=== PATIENT | female | born 1990 | race Hispanic/Latino ===

== ENCOUNTER 2019-05-13 19:47 | Observation (INO) | payer SELFPAY ==
[~2019-05-13] VITALS: Ht 165.1 cm; Wt 102.1 kg
[2019-05-13 23:35] LABS: BASOPHILS % 0.3 % (0.0-1.0); EOSINOPHILS # (AUTO) 0.2 (0.0-0.4); EOSINOPHILS % 1.7 % (0.0-6.0); HEMATOCRIT 33.3 % (34.2-44.1); HEMOGLOBIN 10.2 g/dL (12.0-16.0); LYMPHOCYTES # (AUTO) 2.7 (1.0-3.2); LYMPHOCYTES % 30.6 % (18.0-39.1); MEAN CORPUSCULAR HEMOGLOBIN 22.8 pg (28-32); MEAN CORPUSCULAR HGB CONC 30.6 g/dL (31-35); MEAN CORPUSCULAR VOLUME 74.5 fL (81-99); MONOCYTES # (AUTO) 0.4 (0.2-0.8); MONOCYTES % 4.6 % (4.4-11.3); NEUTROPHILS # (AUTO) 5.5 (2.1-6.9); NEUTROPHILS % 62.6 % (38.7-80.0); PLATELET COUNT 323 x10e3/uL (140-360); RED BLOOD COUNT 4.47 x10e6/uL (3.6-5.1); RED CELL DISTRIBUTION WIDTH 18.2 % (11.7-14.4)
[2019-05-13] MEDS: PIPER-TAZ 3.375 GM 50 ML IV SCH (23:40)
[2019-05-13] MEDS: SODIUM CHLORIDE 0.9% 1000ML 1,000 ML IV SCH (23:40)
[2019-05-13] MEDS: VANCOMYCIN 1GM/NS 250 ML 250 ML IV SCH (23:43)
--- OUTSIDE RECORDS SUMMARY | 2019-05-13 23:43 | XMS REPORT ---
Author Author [facility] Address Unknown Phone Unavailable Care Team Providers Care Lean Specialist Name Role Phone Unavailable Unavailable Problems This patient has no known problems. Allergies, Adverse Reactions, Alerts This patient has no known allergies or adverse reactions. Medications This patient has no known medications. Encounters Start Date/Time End Date/Time Encounter Type Admission Type Attending [facility] Care Facility Care Department Encounter ID 2018-05-23 13:00:05 2018-05-23 13:00:05 Emergency [facility] [id number] 2018-05-23 08:54:11 2018-05-23 08:54:11 Emergency [facility] [id number]
--- OUTSIDE RECORDS SUMMARY | 2019-05-13 23:43 | XMS REPORT | Clinical Summary ---
Author Author [facility] Organization [facility] Address Unknown Phone Unavailable Care Team Providers Care Bar Catcher Name Role Phone PCP Unavailable Allergies No Known Allergies Medications End Date Status Medication Sig Dispensed Refills Start Date Active traMADol (ULTRAM) 50 mg Take 1 tablet 30 tablet 0 tabletIndications: Viral by mouth 8 meningitis every 6 hours as needed for Pain. 05/30/2018 ondansetron (ZOFRAN) 4 mg Take 1 tablet 20 tablet 0 tabletIndications: Viral by mouth 8 meningitis every 8 hours as needed for up to 7 days for Nausea. Active Problems Problem Noted Date Acute intractable headache 05/23/2018 Nausea and vomiting 05/23/2018 Photophobia 05/23/2018 Encounters Care Team Description Date Type Specialty Julia Parada DO Acute intractable headache, unspecified headache type (Primary Dx); Nausea and vomiting, intractability of vomiting not specified, unspecified vomiting type; Photophobia; Viral meningitis 05/23/2018 Emergency Emergency Medicine after 05/12/2018 Social History Date Tobacco Use Types Packs/Day Years Used Never Assessed Sex Assigned at Date Recorded Not on file Industry Job Start Date Occupation Not on file Not on file Not on file Travel End Travel History Travel Start No recent travel history available. Last Filed Vital Signs Reading Time Taken Comments Vital Sign 99/50 05/23/2018 8:33 PM CDT Blood Pressure 69 05/23/2018 8:33 PM CDT Pulse 37.1 C (98.7 F) 05/23/2018 8:33 PM CDT Temperature 18 05/23/2018 8:33 PM CDT Respiratory Rate 98% 05/23/2018 8:33 PM CDT Oxygen Saturation - - Inhaled Oxygen Concentration - - Weight - - Height - - Body Mass Index Plan of Treatment Health Maintenance Due Date Last Done Comments Cervical Cancer Scrn (3 2011 Yrs) IMM Influenza Seasonal 08/12/2019 Oct to January (>/=19 yrs) Procedures Comments Procedure Name Priority Date/Time Associated Diagnosis DIFFERENTIAL, CSF Routine 05/23/2018 5:50 PM CDT FUNGUS CULTURE,CSF STAT 05/23/2018 5:50 PM CDT T PROTEIN, CSF STAT 05/23/2018 5:50 PM CDT GLUCOSE, CSF STAT 05/23/2018 5:50 PM CDT CELL COUNT, CSF STAT 05/23/2018 5:50 PM CDT CSF CULTURE AND GRAM STAT 05/23/2018 STAIN 5:[address] HEAD W/O CONTRAST STAT 05/23/2018 Acute intractable 1:49 PM CDT headache, unspecified headache type POCT URINE DIPSTICK - STAT 05/23/2018 10:09 AM CDT URINALYSIS STAT 05/23/2018 10:00 AM CDT VBG POC Routine 05/23/2018 9:29 AM CDT LUMBAR PUNCTURE Routine 05/23/2018 Acute intractable 9:26 AM CDT headache, unspecified headache type Nausea and vomiting, intractability of vomiting not specified, unspecified vomiting type BMP POC Routine 05/23/2018 9:23 AM CDT CBC/DIFF STAT 05/23/2018 9:07 AM CDT after 05/12/2018 Results * DIFFERENTIAL, CSF (05/23/2018 5:50 PM CDT) Neutrophil 34 (H) 0 - 6 % [facility] Lymphocyte 49 40 - 80 % [facility] Monocyte 15 15 - 45 % [facility] 4 Basophil 2 % [facility] 4 Specimen Performing Organization Address City/State/Zipcode Phone Number MISYS [facility] * T PROTEIN, CSF (05/23/2018 5:50 PM CDT) T Protein, CSF 63.6 (H) 15 - 45 mg/dL [facility] 2 Specimen Cerebrospinal Fluid Performing Organization Address [facility] Phone Number [facility]ATION 2 * GLUCOSE, CSF (05/23/2018 5:50 PM CDT) Glucose, CSF 59 50 - 80 mg/dL [facility] 2 Specimen Cerebrospinal Fluid Performing Organization Address [facility] Phone Number [facility] 2 * FUNGUS CULTURE,CSF (05/23/2018 5:50 PM CDT) Spec Cerebrospinal fluid [facility] OUTPATIENT Description DRAW 3 Order Comments Cerebrospinal fluid [facility] OUTPATIENT DRAW 3 Culture No fungus isolated after 28 BT MICROBIOLOGY days Report Status Final 06/20/2018 BT MICROBIOLOGY Specimen Cerebrospinal Fluid - Cerebrospinal Fluid Performing Organization Address [facility] Phone Number [facility] OUTPATIENT DRAW 3 BT MICROBIOLOGY * CELL COUNT, CSF (05/23/2018 5:50 PM CDT) Appearance Clear [facility] 4 Color Colorless [facility] 4 WBC 123 (H) 0 - 5 /uL [facility] 4 RBC 1,000 /uL [facility] 4 Specimen Cerebrospinal Fluid Performing Organization Address [facility] Phone Number [facility] 4 * CSF STAIN / CULTURE (05/23/2018 5:50 PM CDT) Spec Cerebrospinal fluid [facility] OUTPATIENT Description DRAW 3 Gram Stain 2+ WBC's seen [facility] No organisms seen MICROBIOLOGY Culture No growth 3 days BT MICROBIOLOGY Report Status Final 05/27/2018 BT MICROBIOLOGY Specimen Cerebrospinal Fluid - Cerebrospinal Fluid Performing Organization Address [facility] Phone Number [facility] OUTPATIENT DRAW 3 [facility] MICROBIOLOGY BT MICROBIOLOGY * CT HEAD W/O CONTRAST (05/23/2018 1:49 PM CDT) Specimen Impressions Performed At IMPRESSION: SMS No acute intracranial abnormality. Signed By: Sofía Niño MD, 05/23/2018 1:55 PM Narrative Performed At EXAM: CT BRAIN WITHOUT CONTRAST. SMS INDICATION: Headache, nausea and vomiting COMPARISON: None TECHNIQUE: Non contrast axial images of the brain were obtained. DISCUSSION:There is no intracranial hemorrhage, space-occupying mass, mass effect or midline shift. No acute infarction. Ventricles are normal in size. The calvarium is intact. Visualized paranasal sinuses and tympanomastoid cavities are clear. Procedure Note Interface, Rad/Mammog In - 05/23/2018 2:00 PM CDT EXAM: CT BRAIN WITHOUT CONTRAST. INDICATION: Headache, nausea and vomiting COMPARISON: None TECHNIQUE: Non contrast axial images of the brain were obtained. DISCUSSION: There is no intracranial hemorrhage, space-occupying mass, mass effect or midline shift. No acute infarction. Ventricles are normal in size. The calvarium is intact. Visualized paranasal sinuses and tympanomastoid cavities are clear. IMPRESSION IMPRESSION: No acute intracranial abnormality. Signed By: Sofía Niño MD, 05/23/2018 1:55 PM Performing Organization Address [facility] Phone Number SMS * POCT URINE DIPSTICK - (05/23/2018 10:09 AM CDT) pass Control negative * UA CHEMISTRIES (05/23/2018 10:00 AM CDT) Color Yellow [facility] Clarity Hazy [facility] Specific 1.018 1.001 - 1.035 [facility] 2 pH 7.0 5 - 8 [facility] 2 Protein Negative NEG [facility] 2 Glucose Negative NEG [facility] 2 Ketones Negative NEG [facility] 2 Bilirubin Negative NEG [facility] 2 Nitrate Negative NEG [facility] 2 Urobilinogen,Se <1.0 0.2 - 1.0 EU/dL [facility] mi-Qn MAIN-[facility] 2 Leukocyte Negative NEG [facility] 2 Occult Blood Negative NEG [facility] 2 Specimen Urine Performing Organization Address City/[facility] Phone Number [facility] * VBG POC (05/23/2018 9:29 AM CDT) pH, Sita POC 7.41 7.33 - 7.43 [facility] 1 pCO2, Sita POC 41.8 38.0 - 50.0 mm Hg [facility] 1 pO2, Sita POC 51 50 - 75 mm Hg [facility] 1 Base Excess, 2 mmol/L [facility] Sita POC [facility] 1 HCO3, Sita POC 26.5 (H) 22.0 - 26.0 mmol/L [facility] 1 % Sat, Sita POC 86 (H) 60 - 85 % [facility] 1 Lactic Acid, 1.16 0.4 - 2.0 mmol/L [facility] Sita POC [facility] 1 Sample Type Sita [facility] 1 TCO2, SITA POC 28 21 - 32 mmol/L [facility] 1 Specimen Performing Organization Address City/State/Zipcode Phone Number MISYS [facility] 1 * LUMBAR PUNCTURE (05/23/2018 9:26 AM CDT) Narrative Performed At Niki Irizarry NP 05/23/20186:04 PM Lumbar Puncture Date/Time: 05/23/2018 6:03 PM Performed by: JITENDRA BUSTAMANTE Authorized by: NIKI IRIZARRY Consent: Consent obtained:Verbal and written Consent given by:Patient Risks discussed:Bleeding, headache, infection, nerve damage, pain and repeat procedure Alternatives discussed:No treatment [place] protocol: Procedure explained and questions answered to patient or proxy's satisfaction: yes Relevant documents present and verified: yes Test results available and properly labeled: yes Imaging studies available: yes Required blood products, implants, devices, and special equipment available: yes Immediately prior to procedure a time out was called: yes Site/side marked: yes Pre-procedure details: Procedure purpose:Diagnostic Preparation: Patient was prepped and draped in usual sterile fashion Anesthesia (see MAR for exact dosages): Anesthesia method:Local infiltration Local anesthetic:Lidocaine 1% w/o epi Procedure details: Lumbar space:L4-L5 interspace Patient position:R lateral decubitus Needle gauge:20 Ultrasound guidance: yes Number of attempts:2 Opening pressure (cm H2O):25 Fluid appearance:Blood-tinged then clearing Tubes of fluid:4 Total volume (ml):10 Post-procedure: Puncture site:Direct pressure applied and adhesive bandage applied Patient tolerance of procedure:Tolerated well, no immediate complications * BMP POC (05/23/2018 9:23 AM CDT) CO2 POC 26Comment: Spec sent to Lab 21 - 32 mmol/L [facility] 1 Chloride POC 106 98 - 107 mmol/L [facility]IN-[facility] 1 Potassium POC 4.0 3.50 - 5.10 mmol/L [facility] 1 Sodium POC 142 136 - 145 mmol/L [facility] 1 Glucose POC 99 74 - 106 mg/dL [facility] 1 Urea Nitrogen 6 (L) 7 - 18 mg/dL [facility] 1 Creatinine POC 0.8 0.6 - 1.3 mg/dL [facility] MAIN-STATION 1 Calcium Ionized 1.13 (L) 1.15 - 1.29 mmol/L [facility] POC MAIN-STATION 1 Hemoglobin POC 11.9 (L) 12.0 - 16.0 g/dL [facility] MAIN-STATION 1 Hematocrit POC 35.0 (L) 37.0 - 47.0 % [facility] MAIN-STATION 1 GFR, Estimated >60 mL/min/1.73 m2 [facility] MAIN-STATION 1 GFR, Estim, >60 mL/min/1.73 m2 [facility] Afr-Am MAIN-STATION 1 Specimen Performing Organization Address City/State/Zipcode Phone Number MISYS [facility] MAINSTATION 1 * CBC/DIFF (05/23/2018 9:07 AM CDT) WBC 11.8 (H) 4.5 - 11.0 K/uL [facility] MAIN-STATION 2 RBC 4.66 4.20 - 5.40 M/uL [facility] 2 Hemoglobin 10.4 (L) 12.0 - 16.0 g/dL [facility] MA[facility]-STATION 2 Hematocrit 35.7 (L) 37.0 - 47.0 % [facility] MAIN-STATION 2 MCV 77 (L) 82 - 92 fL [facility] MAIN-ST[facility] 2 MCH 22.3 (L) 27.0 - 32.0 pg [facility] MAIN-STATION 2 MCHC 29.1 (L) 32.0 - 36.0 g/dL [facility] MAIN-STATION 2 RDW 48.7 (H) 36.4 - 46.3 fL [facility] MAIN-STATION 2 Platelets 315 150 - 400 K/uL [facility] MAIN-[facility] 2 Mean Platelet 11.7 9.4 - 12.4 fL [facility] Volume MAIN-STATION 2 Percent NRBC 0.0 [facility] MAIN-STATION 2 Absolute NRBC 0.00 [facility] 2 Neutrophils 85.3 (H) 34.0 - 70.0 % [facility] 2 Lymphs 9.9 (L) 20.0 - 50.0 % [facility] 2 Monocytes 3.8 (L) 5.0 - 12.0 % [facility] 2 Eos 0.3 (L) 0.7 - 5.0 % [facility] 2 Basos 0.3 0.1 - 1.2 % [facility] 2 Immature 0.4 0.0 - 0.5 [facility] Granulocytes [facility] 2 Neutrophils 10.08 (H) 1.56 - 6.13 K/uL [facility] (Absolute) [facility] 2 Lymphs 1.17 (L) 1.18 - 3.74 K/uL [facility] (Absolute) [facility] 2 Monocytes(Absol 0.45 (H) 0.24 - 0.36 K/uL [facility] emily) MAIN-STATION 2 Eos (Absolute) 0.03 (L) 0.04 - 0.36 K/uL [facility] 2 Baso (Absolute) 0.03 0.01 - 0.08 K/uL [facility] 2 Immature Grans 0.05 (H) 0.00 - 0.03 K/uL [facility] (Abs) MAIN-STATION 2 Specimen Blood Performing Organization Address City/State/Zipcode Phone Number MISYS [facility] MAIN-STATION 2 after 05/12/2018
[2019-05-14] MEDS ORDERED: DIPHENHYDRAMINE HCL INJ 50 MG/ML VIAL IV PRN
[2019-05-14] MEDS ORDERED: KETOROLAC TROMETHAMINE 60 MG/2 ML VIAL IV ONE
[2019-05-14] MEDS ORDERED: ZOLPIDEM TARTRATE 5 MG TAB PO PRN
[2019-05-14 00:02] LABS: ALANINE AMINOTRANSFERASE 30 IU/L (0-55); ALBUMIN 3.6 g/dL (3.5-5.0); ALBUMIN/GLOBULIN RATIO 0.9 (0.8-2.0); ALKALINE PHOSPHATASE 78 IU/L (40-150); ANION GAP 13.8 mmol/L (8-16); BLOOD UREA NITROGEN 7 mg/dL (7-26); BUN/CREATININE RATIO 8 (6-25); CARBON DIOXIDE 24 mmol/L (22-29); CHLORIDE 106 mmol/L (98-107); CREATININE, SERUM 0.84 mg/dL (0.57-1.11); EST GLOMERULAR FILTRATION RATE > 60 ML/MIN (60-); GLUCOSE 104 mg/dL (74-118); POTASSIUM 3.8 mmol/L (3.5-5.1); SODIUM 140 mmol/L (136-145)
[2019-05-14] MEDS ORDERED: KETOROLAC TROMETHAMINE 30 MG/ML VIAL ONE (00:11)
--- NOTE | 2019-05-14 06:27 | History and Physical ---
REASON FOR ADMISSION: Perirectal abscess. HISTORY OF PRESENT ILLNESS: The patient is a 28-year-old lady who presented with a rectal pain where she has no sign of perirectal abscess, so she has been admitted for further evaluation and treatment. PAST MEDICAL HISTORY: Unremarkable. MEDICATIONS: None. ALLERGIES: NONE. FAMILY HISTORY: Unremarkable. SOCIAL HISTORY: Nonsmoker. Nondrinker. PHYSICAL EXAMINATION: VITAL SIGNS: Temperature 98.6, blood pressure 136/74, pulse 74, sats 100% on room air. GENERAL: She is no apparent distress. CARDIOVASCULAR: Regular rate and rhythm. LUNGS: Clear to auscultation bilaterally. ABDOMEN: Good bowel sounds. Soft, nontender. EXTREMITIES: No clubbing or cyanosis. NEUROLOGIC: Nonfocal. RECTAL: Shows an abscess in the perirectal region. ASSESSMENT AND PLAN: 1. Perirectal abscess. We will continue IV antibiotics and consult surgery. 2. Anemia. We will continue to monitor. 3. Obesity. Encourage the patient to diet and exercise more. Please see hospital chart for full details. MD ALONZO Thakur/JACKIE /[id number]
[2019-05-14] MEDS: PIPER-TAZ 3.375 GM 50 ML IV SCH ×3 (07:02→18:00)
[2019-05-14] MEDS: HYDROCODONE/APAP 7.5MG-325MG 1 EA TAB PO PRN ×2 (07:56→19:00)
--- NOTE | 2019-05-14 08:09 | NUR ---
DR. MORGAN AT BEDSIDE EVALUATING PATIENT
[2019-05-14] MEDS: FAMOTIDINE 20 MG/2 ML VIAL IV SCH ×2 (09:03→17:00)
--- NOTE | 2019-05-14 10:27 | Diagnostic Imaging Report ---
PROCEDURE:CT PELVIS WITH CONTRAST COMPARISON:None. INDICATIONS:PERIRECTAL ABSCESS TECHNIQUE:Helical axial CT images of the pelvis were obtained after the intravenous administration of 100 cc Isovue 370. Coronal and sagittal reformatted images were available for review. FINDINGS: PELVIC NODES:No inguinal, pelvic sidewall, or lower retroperitoneal lymphadenopathy. PELVIC ORGANS:Urinary bladder is unremarkable. Uterus is anteflexed and appears normal. Normal premenopausal ovaries without adnexal mass. Peritoneum/retroperitoneum: No ascites or pneumoperitoneum GI tract: Visualized large bowel shows no distention or wall thickening. No perirectal fluid collection per clinical query. Vessels: Iliac arterial systems are patent, without aneurysmal dilatation. BONES:No osseous destructive lesion or focal soft tissue abnormality. OTHER:Soft tissues unremarkable. CONCLUSION: No acute pelvic CT abnormalities. No perirectal abscess per clinical query. Dictated by: Adrian Grace M.D. on 05/14/2019 at 10:31 Electronically approved by: Adrian Grace M.D. on 05/14/2019 at 10:31
--- NOTE | 2019-05-14 10:39 | NUR ---
PATIENT REQUESTING TO GO OUTSIDE AND SMOKE. REMINDER SHE SHE SIGNED THE NO SMOKING FACILITY PAPEWORK. WE CAN ASK HER DOCTOR FOR A PATCH. WANTS TO KNOW HER CT RESULTS AND REQUESTING TO BE ABLE TO HAVE SOMETHING TO EAT. RYNE CALL DR. MORGAN WITH REPORT.
--- NOTE | 2019-05-14 10:57 | NUR ---
RECEIVED REPORT FROM DR. FISHER NURSE. OKAY FOR PATIENT TO EAT AND DRINK
[2019-05-14] MEDS: VANCOMYCIN 1GM/NS 250 ML 250 ML IV SCH ×2 (11:37→23:31)
[2019-05-14] MEDS ORDERED: SODIUM CHLORIDE 0.9% 50ML 50 ML ONE (12:31)
[2019-05-14] MEDS ORDERED: IOPAMIDOL 370 MG/ML 200 ML INFUS..BTL INJ ONE (12:32)
--- NOTE | 2019-05-14 14:47 | NUR ---
report received from ER, patient to arrive on unit via hospital bed with significant other at bedside.
[2019-05-14 15:05] VITALS: BP 106/67
[2019-05-14 16:04] VITALS: BP 106/67
[2019-05-14 16:07] VITALS: BP 106/67
[2019-05-14] MEDS: SODIUM CHLORIDE 0.9% 1000ML 1,000 ML IV SCH ×2 (17:03→23:17)
[2019-05-14 19:30] VITALS: BP 120/94
[2019-05-14] MEDS: MORPHINE SULFATE INJ 4 MG/ML INJ 1ML IV PRN (21:02)
[2019-05-14] MEDS: ONDANSETRON HCL INJ 2MG/ML 2ML 2 MG/ML VIAL IV PRN (21:03)
--- NOTE | 2019-05-14 21:03 | NUR ---
PATIENT C/O PAIN TO THE RECTAL ABSCESS, MEDICATED WITH MORPHINE AND ZOFRAN ORDERED. SHE HAD USED THE RESTROOM PRIOR TO ADMINISTERING THE MEDICATIONS.
[2019-05-14 23:20] VITALS: BP 104/85
--- NOTE | 2019-05-14 23:26 | Consultation ---
DATE OF CONSULTATION: 05/14/2019 CHIEF COMPLAINT: Anal pain. HISTORY OF PRESENT ILLNESS: This patient is a 28-year-old female with 2-day history of perianal pain with no fever or chills or diarrhea. The patient has no previous history of pain, rectal or anal abscess. PAST SURGICAL HISTORY: Unremarkable. No previous surgery. ALLERGIES: NO DRUGS ALLERGIES. SOCIAL HISTORY: No history of smoking or alcohol abuse. REVIEW OF SYSTEMS: As in HPI. PHYSICAL EXAMINATION: VITAL SIGNS: Stable. Afebrile. GENERAL: She is awake, alert, in moderate discomfort. HEENT: Sclerae are nonicteric. NECK: Supple. LUNGS: Clear. HEART: Regular rate and rhythm. ABDOMEN: Soft and nontender. RECTAL: Anal exam reveals one area of induration and mild erythema suggestive of evolving abscess formation versus hemorrhoid thrombosis. LABORATORY DATA: Blood tests show creatinine of 0.8. White cell count of 8.7. CT of the pelvis showed no evidence of perirectal abscess formation. ASSESSMENT: Perianal pain, which could represent evolving perianal abscess formation versus hemorrhoidal inflammation. PLAN: Continue IV hydration and antibiotics. We will follow patient's closely. MD PORFIRIO Ospina/JACKIE /[id number]
--- NOTE | 2019-05-14 23:40 | NUR ---
PATIENT RESTING IN BED, NO RESPIRATORY DISTRESS OBSERVED AND SHE DENIES PAIN. NO DRAINAGE NOTED FROM THE RECTAL ABSCESS STATED BY THE PATIENT, SHE'S INSTRUCTED TO CALL FOR ASSISTANCE NEEDED.
[2019-05-15] VITALS (8 sets, daily range): BP systolic 90–122; BP diastolic 57–81
[2019-05-15] MEDS: PIPER-TAZ 3.375 GM 50 ML IV SCH ×4 (01:15→17:00)
[2019-05-15] MEDS: HYDROCODONE/APAP 7.5MG-325MG 1 EA TAB PO PRN ×2 (03:45→21:14)
--- NOTE | 2019-05-15 03:45 | NUR ---
PATIENT C/O MILD RECTAL PAIN, MEDICATED WITH NORCO 1TAB ORDERED. CALL LIGHT WITHIN EASY REACH, SHE'S INSTRUCTED TO CALL FOR ASSISTANCE NEEDED.
[2019-05-15] MEDS: FAMOTIDINE 20 MG/2 ML VIAL IV SCH ×2 (08:45→16:57)
--- NOTE | 2019-05-15 11:54 | NUR ---
RECEIVED REPORT ON PATIENT. PATIENT IS IN STABLE CONDITION WITH NO S/S OF RESPIRATORY DISTRESS. NO PAIN VOICED. CALL LIGHT IS WITHIN REACH, PATIENT INSTRUCTED TO CALL FOR ASSISTANCE NEEDED.
[2019-05-15] MEDS: SODIUM CHLORIDE 0.9% 1000ML 1,000 ML IV SCH ×3 (13:03→23:17)
[2019-05-15] MEDS: ONDANSETRON HCL INJ 2MG/ML 2ML 2 MG/ML VIAL IV PRN ×3 (13:13→23:57)
[2019-05-15] MEDS: MORPHINE SULFATE INJ 4 MG/ML INJ 1ML IV PRN ×3 (13:13→23:59)
[2019-05-15] MEDS: VANCOMYCIN 1GM/NS 250 ML 250 ML IV SCH ×2 (13:42→23:23)
[2019-05-15] MEDS ORDERED: LIDOCAINE HCL 2% LOCAL 20 ML VIAL INJ ONE (14:30)
--- NOTE | 2019-05-15 14:56 | NUR ---
I/D PERFORMED BY DR. MORGAN AT BEDSIDE- 4x4 GAUZE APPLIED AND MESH PANTIES APPLIED.
--- NOTE | 2019-05-15 15:09 | Operative Report ---
DATE OF PROCEDURE: 05/15/2019 SURGEON: Adrian Sharp MD PREOPERATIVE DIAGNOSIS: Anal abscess. POSTOPERATIVE DIAGNOSIS: Anal abscess. OPERATIVE PROCEDURE: Incision and drainage of anal abscess. ANESTHESIA: Local. INDICATION: A 28-year-old female with 3-day history of perianal pain. She consented for I and D of anal abscess under local anesthesia and attendant risks discussed. DESCRIPTION OF PROCEDURE: The patient placed on the hospital bed in a right lateral decubitus position with the left side up. At approximately 10 o'clock position, there was an anal abscess which was small and local anesthesia of 2% lidocaine was injected into the skin and submucosal tissue. After local anesthesia had taken effect, we made radial incisions directly over the roof of the abscess draining a small amount of pus. There was minimal amount of bleeding, approximately 1 mL. Pressure dressing applied with 4 x 4 gauze. The patient tolerated procedure well. Adrian Sharp MD DNL/MODL /[id number]
--- NOTE | 2019-05-15 18:45 | NUR ---
PATIENT IS IN STABLE CONDITION WITH NO S/S OF RESPIRATORY DISTRESS. PAIN MEDICATION RECENTLY ADMINISTERED TO PATIENT. IV FLUIDS INFUSING. FAMILY MEMBERS PRESENT IN ROOM. CALL LIGHT IS WITHIN REACH, PATIENT INSTRUCTED TO CALL FOR ASSISTANCE NEEDED. REPORT GIVEN TO ONCOMING NURSE.
[2019-05-15] MEDS: ACETAMINOPHEN 325 MG TAB PO PRN (21:04)
[2019-05-16 00:14] VITALS: BP 115/70
[2019-05-16] MEDS: PIPER-TAZ 3.375 GM 50 ML IV SCH ×2 (00:45→06:23)
[2019-05-16 04:00] VITALS: BP 105/69
[2019-05-16] MEDS: HYDROCODONE/APAP 7.5MG-325MG 1 EA TAB PO PRN ×2 (04:35→08:35)
--- NOTE | 2019-05-16 06:59 | NUR ---
REPORT GIVEN TO ONCOMING NURSE,WALKING ROUNDS DONE.PT RESTING IN BED WITH NO S/S OF DISTRESS.
--- NOTE | 2019-05-16 07:00 | NUR ---
received am report from RN, morning rounds completed. pt is sleeping in bed, significant other is with the pt. no s/s of distress noted from pt.
[2019-05-16] MEDS: FAMOTIDINE 20 MG/2 ML VIAL IV SCH (08:35)
[2019-05-16 08:37] VITALS: BP 110/69
[2019-05-16 09:27] VITALS: BP 110/69
[2019-05-16] MEDS ORDERED: ONDANSETRON HCL 4 MG ORAL DISINTEGRATING TAB PO PRN (11:30)
[2019-05-16] MEDS: ACETAMINOPHEN 325 MG TAB PO PRN (12:08)
[2019-05-16] MEDS ORDERED: FAMOTIDINE 20 MG TAB PO SCH (16:30)
--- NOTE | 2019-05-28 21:18 | Discharge Summary ---
DISCHARGE DIAGNOSIS: Perirectal abscess. HISTORY OF PRESENT ILLNESS: The patient is a 28-year-old lady, presented with perirectal pain, where she was noticed to have a very small perirectal abscess. She was brought in, placed on pain medicines, IV antibiotics. She was seen by Dr. Sharp of Surgery, who then performed an I and D that showed improvement of her pain. At the time of discharge, she was able to take p.o. pain medicines well. She is ambulating well and eating well, so she was then discharged home with p.o. pain medication as well as p.o. antibiotics and follow up in 2 weeks with her primary care physician as well as Dr. Sharp of Surgery. Please see all chart for full details. MD ALONZO Thakur/JACKIE /[id number]
== END 2019-05-16 12:31 | disposition home or self-care (01) ==
LOC: ER 19:47 → ERHOLD 23:40 → IMCU 05-14 14:56 → MED/SURG 05-15 20:24
PROVIDERS: ADMIT Internal Medicine; ATTEND Internal Medicine
DX: K61.0 Anal abscess (principal); K62.89 Other specified diseases of anus and rectum; K64.5 Perianal venous thrombosis; D64.9 Anemia, unspecified; E66.9 Obesity, unspecified; Z68.37 Body mass index [BMI] 37.0-37.9, adult
CPT/HCPCS: 36415 ×2; 46045; 72193; 80053; 80202; 84702; 85025; 96365; 96367; 96376; 99284; G0378 ×4; J1885; J2001; J2270 ×2; J2405 ×2; J2543 ×4; J3370 ×3; J7030 ×3; Q9967

== ENCOUNTER 2020-01-03 03:05 | Emergency (ER) | payer SELFPAY ==
[~2020-01-03] VITALS: Ht 165.1 cm; Wt 102.1 kg
--- OUTSIDE RECORDS SUMMARY | 2020-01-03 03:07 | XMS REPORT | Summary of Care ---
Author Author [facility] - Health Organization [facility] - Health Address Unknown Phone Unavailable Care Team Providers Care Cage Tender Name Role Phone Pcp, Patient Does Not Have A PCP Pcp, Patient Does Not Have A PCP Reason for Referral * Radiology Services (STAT) Referred By Contact Referred To Contact Status Reason Specialty Diagnoses / Procedures Johny Whitfield FNP [address] [facility] [address] [place] [phone] New Request Diagnostic Diagnoses Radiology Sinus congestion Sinus headache P rocedures XR CHEST 2 VW * Radiology Services (STAT) Referred By Contact Referred To Contact Status Reason Specialty Diagnoses / Procedures Johny Whitfield FNP [address] [facility] [address] [place] [phone] New Request Diagnostic Diagnoses Radiology Sinus congestion Sinus headache P rocedures XR CHEST 2 VW Reason for Visit * Reason Comments Headache Congestion Hearing Problem * Auth/Cert Referred By Contact Referred To Contact Status Reason Specialty Diagnoses / Procedures [facility] [address] [place] [phone] Emergency Medicine Encounter Details Care Team Description Date Type Department Johny Whitfield FNP [address] [facility] [address] [place] [phone] Sinus congestion (Primary Dx); Sinus headache; Bronchitis 07/09/2019 Emergency [facility]-Emergency Department - [address] [place] [address] 07/10/2019 [place] [phone] Allergies No Known Allergiesdocumented as of this encounter (statuses as of 07/10/2019) Medications End Date Status Medication Sig Dispensed Refills Start Date Active famotidine (PEPCID) 20 mg Take 1 tablet 20 tablet 0 tablet by mouth 2 6 (two) times daily. Active BENTYL 20 mg tablet Take 1 tablet 20 tablet 0 by mouth 4 6 (four) times daily. Active HYDROcodone-acetaminophen Take 1 tablet 30 tablet 0 5-325 mg tablet by mouth 8 every 4 (four) hours as needed for Pain (scale 7-10). Active azithromycin 250 mg Take 1 tablet 1 Package 0 tabletIndications: Sinus by mouth 9 congestion, Sinus daily. Take headache, Bronchitis 500 mg day 1, then 250 mg days 2 to 5. Active methylPREDNISolone Take by 21 Each 0 (MEDROL, CHERELLE,) 4 mg mouth 9 tabletsIndications: Sinus SEE-INSTRUCTI congestion, Sinus ONS. follow headache, Bronchitis package directions Active benzonatate 100 mg Take 1 14 capsule 0 capsuleIndications: Sinus capsule by 9 congestion, Sinus mouth 3 headache, Bronchitis (three) times daily as needed for Cough. Active albuterol 90 Inhale 2 8.5 g 0 mcg/actuation Puffs every 4 9 inhalerIndications: (four) hours Bronchitis as needed for Wheezing or Shortness of Breath. documented as of this encounter (statuses as of 07/10/2019) Active Problems Problem Noted Date Obesity (BMI 30-39.9) 01/21/2018 Appendicitis 01/21/2018 Abdominal pain 01/20/2018 documented as of this encounter (statuses as of 07/10/2019) Immunizations Name Administration Dates Next Due Td 10/20/2016 documented as of this encounter Social History Date Tobacco Use Types Packs/Day Years Used Current Every Day Smoker Cigarettes 0.5 10 Smokeless Tobacco: Never Used Drinks/Week oz/Week Comments Alcohol Use 2-3 beers per day Yes Sex Assigned at Date Recorded Not on file Industry Job Start Date Occupation Not on file Not on file Not on file Travel End Travel History Travel Start No recent travel history available. documented as of this encounter Last Filed Vital Signs Reading Time Taken Comments Vital Sign 108/69 07/10/2019 12:42 AM CDT Blood Pressure 88 07/10/2019 12:42 AM CDT Pulse 36.9 C (98.4 F) 07/09/2019 10:25 PM CDT Temperature 17 07/10/2019 12:42 AM CDT Respiratory Rate 99% 07/10/2019 12:42 AM CDT Oxygen Saturation - - Inhaled Oxygen Concentration 105.2 kg (232 lb) 07/09/2019 10:25 PM CDT Weight - - Height 36.34 02/12/2018 11:18 AM CDT Body Mass Index documented in this encounter Discharge Instructions * Attachments The following attachments cannot be sent through Care Everywhere.* Bronchitis with Wheezing (Adult) ([place]) documented in this encounter Plan of Treatment Health Maintenance Due Date Last Done Comments VARICELLA VACCINES (1 of 2003 2 - 13+ 2-dose series) PAP SMEAR 2011 DTaP,Tdap,and Td Vaccines 10/21/2016 10/20/2016 (1 - Tdap) INFLUENZA VACCINE 07/13/2019 (Retired version) PNEUMOCOCCAL 0-64 YEARS Aged Out No longer eligible based COMBINED SERIES on patient's age to complete this topic documented as of this encounter Procedures Comments Procedure Name Priority Date/Time Associated Diagnosis XR CHEST 2 VW STAT 07/10/2019 Sinus congestion 12:24 AM CDT Sinus headache POCT TEST LUCIANO 07/10/2019 Sinus congestion 12:13 AM CDT Sinus headache documented in this encounter Results * XR CHEST 2 VW (07/10/2019 12:24 AM CDT) Specimen Impressions Performed At No acute radiographic cardiopulmonary disease. PACS/VR/DOSE RL: [id number] Narrative Performed At ORDERING PHYSICIAN:JOHNY WHITFIELD PACS/VR/DOSE CLINICAL HISTORY: Acute cough TECHNIQUE: Two views of the chest COMPARISON: None available. FINDINGS: The cardiac silhouette is within normal limits. Lungs are clear. Osseous structures are normal. Procedure Note [facility], Radiant Results Inft User - 07/10/2019 12:29 AM CDT ORDERING PHYSICIAN: JOHNY WHITFIELD CLINICAL HISTORY: Acute cough TECHNIQUE: Two views of the chest COMPARISON: None available. FINDINGS: The cardiac silhouette is within normal limits. Lungs are clear. Osseous structures are normal. IMPRESSION No acute radiographic cardiopulmonary disease. RL: [id number] Performing Organization Address City/State/Zipcode Phone Number PACS/VR/DOSE * POCT TEST (07/10/2019 12:13 AM CDT) POCT PREG Negative On board Present controls acceptable with C Line POCT PREG LOT # [id number] POCT PREG TEST 11/11/2020 DATE Specimen Urine - URINE, CLEAN CATCH documented in this encounter Visit Diagnoses Diagnosis Sinus congestion - Primary Other diseases of nasal cavity and sinuses Sinus headache Headache Bronchitis Bronchitis, not specified as acute or chronic documented in this encounter Administered Medications Action Date Dose Rate Site Medication Order MAR Action 07/10/2019 12:33 AM CDT 10 mg dexamethasone (DECADRON PHOSPHATE) Given injection 10 mg 10 mg, Oral, ONCE, 1 dose, [facility] 07/10/19 at 0030, STAT 07/10/2019 12:33 AM CDT 800 mg ibuprofen (IBU) tablet 800 mg Given 800 mg, Oral, ONCE, 1 dose, Deb 07/10/19 at 0030, LUCIANO documented in this encounter
[2020-01-03] MEDS ORDERED: PANTOPRAZOLE 40 MG 10ML VIAL IV STA (03:08)
[2020-01-03] MEDS ORDERED: DICYCLOMINE HCL 20 MG/2 ML VIAL IM ONE (03:15)
[2020-01-03 03:24] LABS: BASOPHILS % 0.3 % (0.0-1.0); EOSINOPHILS # (AUTO) 0.1 (0.0-0.4); EOSINOPHILS % 1.6 % (0.0-6.0); HEMATOCRIT 31.9 % (34.2-44.1); HEMOGLOBIN 9.5 g/dL (12.0-16.0); LYMPHOCYTES # (AUTO) 2.3 (1.0-3.2); MEAN CORPUSCULAR HEMOGLOBIN 23.1 pg (28-32); MEAN CORPUSCULAR HGB CONC 29.8 g/dL (31-35); MEAN CORPUSCULAR VOLUME 77.4 fL (81-99); MONOCYTES # (AUTO) 0.4 (0.2-0.8); MONOCYTES % 6.7 % (4.4-11.3); NEUTROPHILS % 51.2 % (38.7-80.0); PLATELET COUNT 347 x10e3/uL (140-360); RED BLOOD COUNT 4.12 x10e6/uL (3.6-5.1); RED CELL DISTRIBUTION WIDTH 16.8 % (11.7-14.4)
[2020-01-03 03:33] LABS: CLARITY,URINE CLEAR (CLEAR); COLOR,URINE YELLOW (YELLOW); PREGNANCY TEST, URINE NEGATIVE (NEGATIVE)
[2020-01-03 03:34] LABS: BILIRUBIN,URINE NEGATIVE (NEGATIVE); KETONES,URINE NEGATIVE (NEGATIVE); LEUKOCYTE ESTERASE ,URINE NEGATIVE (NEGATIVE); NITRITE,URINE NEGATIVE (NEGATIVE); PROTEIN,URINE DIPSTICK NEGATIVE (NEGATIVE); URINE UROBILINOGEN 0.2 mg/dL (0.2 - 1)
[2020-01-03 03:43] LABS: BACTERIA,URINE FEW /HPF; EPITHELIAL CELLS,URINE FEW /LPF; WBC,URINE (MAN) 21-50 /HPF (0-5)
[2020-01-03 03:43] LABS: AMYLASE 50 U/L (25-125); LIPASE 29 U/L (8-78)
[2020-01-03 03:44] LABS: TRICHOMONAS,URINE MANY
[2020-01-03 03:58] LABS: ALANINE AMINOTRANSFERASE 25 IU/L (0-55); ALBUMIN 3.4 g/dL (3.5-5.0); ALBUMIN/GLOBULIN RATIO 0.9 (0.8-2.0); ALKALINE PHOSPHATASE 73 IU/L (40-150); ANION GAP 11.8 mmol/L (8-16); BLOOD UREA NITROGEN 5 mg/dL (7-26); BUN/CREATININE RATIO 6 (6-25); CALCIUM 8.9 mg/dL (8.4-10.2); CARBON DIOXIDE 24 mmol/L (22-29); CHLORIDE 110 mmol/L (98-107); CREATININE, SERUM 0.78 mg/dL (0.57-1.11); EST GLOMERULAR FILTRATION RATE > 60 ML/MIN (60-); GLUCOSE 98 mg/dL (74-118); POTASSIUM 3.8 mmol/L (3.5-5.1); SODIUM 142 mmol/L (136-145)
[2020-01-03] MEDS ORDERED: AZITHROMYCIN 250 MG TAB ONE (04:05)
[2020-01-03] MEDS ORDERED: CEFTRIAXONE SOD 1 GM VIAL ONE (04:06)
[2020-01-03] MEDS ORDERED: LIDOCAINE HCL 1% LOCAL INJ 20 ML VIAL ONE ×2 (04:06→04:21)
[2020-01-03] MEDS ORDERED: METRONIDAZOLE 500 MG TAB ONE (04:09)
[2020-01-03] MEDS ORDERED: CEFTRIAXONE SOD 250 MG VIAL IM ONE (04:15)
[2020-01-03] MEDS ORDERED: AZITHROMYCIN 250 MG TAB PO ONE ×2 (04:15)
[2020-01-03] MEDS ORDERED: METRONIDAZOLE 500 MG TAB PO ONE ×2 (04:15)
== END 2020-01-03 05:02 | disposition home or self-care (01) ==
LOC: ER 03:05
DX: R10.13 Epigastric pain (principal); K80.70 Calculus of gallbladder and bile duct without cholecystitis without obstruction; K29.00 Acute gastritis without bleeding; A59.03 Trichomonal cystitis and urethritis; F17.210 Nicotine dependence, cigarettes, uncomplicated
CPT/HCPCS: 36415; 80053; 81001; 81025; 82150; 83690; 85025; 99283; C9113; J0500; J0696; J2001